=== PATIENT | male | born 1995 | race Two or more races ===

== ENCOUNTER 2017-08-23 12:16 | Emergency (ER) | payer OTHER ==
--- NOTE | 2017-08-23 13:19 | EDPHY ---
H & P Time Seen by Provider: 08/23/17 12:46 HPI/ROS: CHIEF COMPLAINT: Wrist laceration HISTORY OF PRESENT ILLNESS: 22-year-old male complaining of acute right wrist laceration which occurred when he was washing dishes an area dish broke. Complaining of laceration to the ventral wrist which occurred shortly prior to arrival. Tetanus up-to-date. No paresthesia distally. No musculoskeletal deficits. PHYSICAL EXAM (Prior to examination, patient consented to physical exam, hands were washed and my usual and customary physical exam procedures followed) 1) GENERAL: Well-developed, well-nourished, alert and oriented. Appears to be in no acute distress. 2) HEAD: Normocephalic 3) HEENT: sclera anicteric 4) LUNGS: Breathing comfortably. 5) SKIN: The right ventral wrist he has a 4 cm transverse laceration 6) MUSCULOSKELETAL: Visible complete tendon laceration noted , noted to have a likely palmaris longus tendon laceration 7) NEUROLOGIC: Radial ulnar median nerve function intact. Smoking Status: Never smoked Constitutional: Initial Vital Signs Temperature (C) 36.8 C 08/23/17 12:21 Heart Rate 76 08/23/17 12:21 Respiratory Rate 18 08/23/17 12:21 Blood Pressure 110/58 L 08/23/17 12:21 O2 Sat (%) 98 08/23/17 12:21 O2 Delivery Mode Room Air Allergies/Adverse Reactions: No Known Allergies Allergy (Verified 08/23/17 12:21) Home Medications: Medication Instructions Recorded Cephalexin [Keflex] 500 mg PO TID 7 Days cap 08/23/17 MDM/Departure - [facility] Imaging Results: Imaging Impressions Wrist X-Ray 08/23/17 13:20 Impression: 1. Soft tissue injury with no radiopaque foreign object. 2. Additional findings as above. Images reviewed by myself Procedures: Procedure: Laceration repair. I explained the indications, risks and benefits for both laceration repair and anesthetic administration. Verbal consent was obtained from the patient. The laceration on the right wrist was anesthetized using 0.5% bupivicaine with epinephrine. After anesthetic administered the patient was observed for a period of time and had no apparent adverse effects. The wound was cleaned, prepped, draped in normal sterile fashion and explored to its base. No foreign body seen, no foreign bodies palpated. Tendon injury identified The wound was repaired with 7 simple interrupted 5 O Ethilon sutures. The wound repair was simple. The procedure was performed by myself. Patient has been informed that scarring will occur, although efforts have been made to minimize this. Procedure: Splint A Velcro volar splint was applied by ER piano technician. After application of the splint I returned and re-examined the patient. The splint was adequately immobilizing the joint and distal to the splint the patient's circulation and sensation were intact. Patient shows no signs of compartment syndrome. Was given orthopedic precautions. ED Course/Re-evaluation: 2:36 p.m.: Consultation with on-call hand surgery, JAREN Smith with Dr. Gorge Martínez who agrees with plan of wound closure, splint, follow up in office on Friday or Friday as today is Friday. - Depart Disposition: Home, Routine, Self-Care Clinical Impression: Laceration of left wrist Qualifiers: Encounter type: initial encounter Qualified Code(s): S61.512A - Laceration without foreign body of left wrist, initial encounter Condition: Good Instructions: Care For Your Stitches (ED), Laceration (ED) Prescriptions: Cephalexin [Keflex] 500 mg PO TID 7 Days cap Referrals: Gorge Martínez MD [Medical Doctor] - 08/25/17 (Dr. Gorge Martínez is a hand surgeon)
[2017-08-23] MEDS ORDERED: CEPHALEXIN 500 MG CAP PO ONE (14:56)
[2017-08-23 15:04] VITALS: BP 114/72; TEMP 97.9; O2SAT 96
[2017-08-23 15:20] VITALS: PULSE 77; RESP 20
== END 2017-08-23 15:20 | disposition home or self-care (01) ==
PROC: 0HQDXZZ Repair Right Lower Arm Skin, External Approach (ICD-10-PCS; principal; 2017-08-23)
DX: S61.512A Laceration without foreign body of left wrist, initial encounter (principal); W45.8XXA Other foreign body or object entering through skin, initial encounter